=== PATIENT | female | born 1960 | race Caucasian/White ===

== ENCOUNTER → 2020-11-22 | Day surgery (SDC) | payer OTHER, MEDICARE ==
[~2020-11-22] VITALS: Ht 167.6 cm; Wt 68.2 kg
[~2020-11-22] MED LIST: APPLE CIDER VI1 EACH PO; BUSPAR5 MG PO; CALCIUM 600 +1 EAC3 PO; ESCITALOPRAM OX20 MG PO; LIPITOR20 M1 PO; LODINE400 MG PO; LOVAZA1 GM PO; PRILOSEC20 MG PO; PRINIVIL10 MG PO; TRAZODONE HCL50 MG PO; VENTOLIN HFA IN18 GM INH; WOMEN'S 50 PLU1 EACH PO; ZOFRAN4 M1 PO; ZYPREXA10 MG PO
== END | disposition home or self-care (01) ==
LOC: FAS 09:21
DX: K57.30 Diverticulosis of large intestine without perforation or abscess without bleeding (principal); K21.9 Gastro-esophageal reflux disease without esophagitis; K64.4 Residual hemorrhoidal skin tags; J44.9 Chronic obstructive pulmonary disease, unspecified; F17.210 Nicotine dependence, cigarettes, uncomplicated; F31.9 Bipolar disorder, unspecified; M19.90 Unspecified osteoarthritis, unspecified site; E78.00 Pure hypercholesterolemia, unspecified; I10 Essential (primary) hypertension; M81.0 Age-related osteoporosis without current pathological fracture; Z79.899 Other long term (current) drug therapy; Z80.3 Family history of malignant neoplasm of breast; Z90.49 Acquired absence of other specified parts of digestive tract; Z98.890 Other specified postprocedural states; Z98.51 Tubal ligation status; Z87.42 Personal history of other diseases of the female genital tract; Z82.49 Family history of ischemic heart disease and other diseases of the circulatory system; Z20.822 Contact with and (suspected) exposure to COVID-19
CPT/HCPCS: J2250; J2704; J7120